=== PATIENT | female | born 1960 | race Caucasian/White ===

== ENCOUNTER → 2020-10-07 | Day surgery (SDC) | payer BC ==
[2020-10-04 09:01] LABS: BASOPHILS # (AUTO) 0.1 (0.0-0.1); BASOPHILS % 0.5 % (0.0-1.0); EOSINOPHILS # (AUTO) 0.9 (0.0-0.4); EOSINOPHILS % 7.9 % (0.0-6.0); HEMOGLOBIN 13.8 g/dL (12.0-16.0); LYMPHOCYTES % 27.1 % (18.0-39.1); MEAN CORPUSCULAR HEMOGLOBIN 30.1 pg (28-32); MEAN CORPUSCULAR HGB CONC 32.9 g/dL (31-35); MEAN CORPUSCULAR VOLUME 91.5 fL (81-99); MONOCYTES # (AUTO) 0.6 (0.2-0.8); MONOCYTES % 5.4 % (4.4-11.3); NEUTROPHILS # (AUTO) 6.5 (2.1-6.9); NEUTROPHILS % 58.6 % (38.7-80.0); PLATELET COUNT 288 x10e3/uL (140-360); RED BLOOD COUNT 4.59 x10e6/uL (3.6-5.1); RED CELL DISTRIBUTION WIDTH 12.2 % (11.7-14.4)
[2020-10-04 09:22] LABS: INR 0.9; PROTHROMBIN TIME 12.7 seconds (11.9-14.5)
[2020-10-04 09:27] LABS: ALANINE AMINOTRANSFERASE 12 IU/L (0-55); ALBUMIN 3.5 g/dL (3.5-5.0); ALBUMIN/GLOBULIN RATIO 0.8 (0.8-2.0); ALKALINE PHOSPHATASE 87 IU/L (40-150); ANION GAP 16.3 mmol/L (8-16); BLOOD UREA NITROGEN 19 mg/dL (7-26); BUN/CREATININE RATIO 21 (6-25); CALCIUM 9.6 mg/dL (8.4-10.2); CARBON DIOXIDE 21 mmol/L (22-29); CHLORIDE 106 mmol/L (98-107); CREATININE, SERUM 0.92 mg/dL (0.57-1.11); EST GLOMERULAR FILTRATION RATE > 60 ML/MIN (60-); GLUCOSE 250 mg/dL (74-118); POTASSIUM 4.3 mmol/L (3.5-5.1); SODIUM 139 mmol/L (136-145)
[2020-10-07] VITALS (13 sets, daily range): BP systolic 115–168; BP diastolic 63–92
[~2020-10-07] VITALS: Ht 157.5 cm; Wt 69.9 kg
[~2020-10-07] MED LIST: ADENOSINE 3MG/1ML 30ML VIAL ONE; ALEVE220 M1 PO; Albuterol/Ipratropium NEB; FENTANYL CITRATE/PF 100MCG/2 ML INJ ONE; HEPARIN SOD (PORCINE) 1000 UNIT/ML 30ML ONE; HEPARIN SOD/SOD CHLORIDE 2,000 ML ONE; IOPAMIDOL 370 MG/ML 200 ML INFUS..BTL INJ ONE; KAPSPARGO SPRIN25 MG PO; KOMBIGLYZE XR1 EAC2 PO; LEVAQUIN500 MG PO; LEVEMIR100 UNIT/1 SC; LIDOCAINE HCL 2% LOCAL 20 ML VIAL ONE; METOPROLOL TART50 MG PO; MIDAZOLAM HCL 2 MG/2 ML VIAL ONE; MUCINEX600 MG PO; NITROGLYCERIN/D5W 200 MCG/ML 250 ML ONE; PREDNISONE20 MG PO; PROTONIX40 MG/ML PO; SODIUM CHLORIDE 0.9% 1000ML 1,000 ML ONE; SODIUM CHLORIDE 0.9% 50ML 50 ML ONE; VERAPAMIL HCL 2.5 MG/ML 2 ML VIAL ONE; WELCHOL625 MG PO
== END | disposition home or self-care (01) ==
LOC: CATH LAB 07:12
PROVIDERS: ATTEND Internal Medicine Cardiovascular Disease
DX: I25.10 Atherosclerotic heart disease of native coronary artery without angina pectoris (principal); R94.39 Abnormal result of other cardiovascular function study; I10 Essential (primary) hypertension; E78.5 Hyperlipidemia, unspecified; I47.1 Supraventricular tachycardia; E11.9 Type 2 diabetes mellitus without complications; Z01.812 Encounter for preprocedural laboratory examination; Z20.822 Contact with and (suspected) exposure to COVID-19; Z82.49 Family history of ischemic heart disease and other diseases of the circulatory system; Z83.3 Family history of diabetes mellitus; Z82.3 Family history of stroke
CPT/HCPCS: 36415; 80053; 85025; 85610; 93458; 93571; C1753; C1769; C1887; J0153; J1644; J2001; J2250; J3010; J7030; Q9967; U0002; 99152; 99153

== ENCOUNTER 2022-05-30 09:50 | Inpatient (IN) | payer BC, OTHER ==
[~2022-05-30] VITALS: Ht 157.5 cm; Wt 54.0 kg
[~2022-05-30 09:50] MED LIST changes: -ADENOSINE 3MG/1ML 30ML VIAL ONE; -FENTANYL CITRATE/PF 100MCG/2 ML INJ ONE; -HEPARIN SOD (PORCINE) 1000 UNIT/ML 30ML ONE; -HEPARIN SOD/SOD CHLORIDE 2,000 ML ONE; -IOPAMIDOL 370 MG/ML 200 ML INFUS..BTL INJ ONE; -LIDOCAINE HCL 2% LOCAL 20 ML VIAL ONE; -MIDAZOLAM HCL 2 MG/2 ML VIAL ONE; -NITROGLYCERIN/D5W 200 MCG/ML 250 ML ONE; -SODIUM CHLORIDE 0.9% 1000ML 1,000 ML ONE; -SODIUM CHLORIDE 0.9% 50ML 50 ML ONE; -VERAPAMIL HCL 2.5 MG/ML 2 ML VIAL ONE
[2022-05-30 10:42] LABS: BASOPHILS # (AUTO) 0.1 (0.0-0.1); BASOPHILS % 0.6 % (0.0-1.0); EOSINOPHILS # (AUTO) 0.3 (0.0-0.4); EOSINOPHILS % 1.6 % (0.0-6.0); HEMATOCRIT 41.1 % (34.2-44.1); HEMOGLOBIN 12.5 g/dL (12.0-16.0); LYMPHOCYTES % 5.5 % (18.0-39.1); MEAN CORPUSCULAR HEMOGLOBIN 29.9 pg (28-32); MEAN CORPUSCULAR HGB CONC 30.4 g/dL (31-35); MEAN CORPUSCULAR VOLUME 98.3 fL (81-99); MONOCYTES # (AUTO) 0.8 (0.2-0.8); MONOCYTES % 4.1 % (4.4-11.3); NEUTROPHILS # (AUTO) 16.2 (2.1-6.9); NEUTROPHILS % 87.8 % (38.7-80.0); PLATELET COUNT 422 x10e3/uL (140-360); RED BLOOD COUNT 4.18 x10e6/uL (3.6-5.1)
[2022-05-30 11:05] LABS: ALBUMIN 2.3 g/dL (3.5-5.0); ALBUMIN/GLOBULIN RATIO 0.4 (0.8-2.0); ANION GAP 19.6 mmol/L (8-16); CALCIUM 9.5 mg/dL (8.4-10.2); CREATININE, SERUM 0.69 mg/dL (0.57-1.11); POTASSIUM 4.6 mmol/L (3.5-5.1)
[2022-05-30] MEDS ORDERED: LACTATED RINGER'S 1,000 ML INJ ONE ×2 (11:15→13:45)
[2022-05-30] MEDS ORDERED: FENTANYL CITRATE/PF 100MCG/2 ML INJ IV PRN (11:30)
[2022-05-30] MEDS ORDERED: ASPIRIN 81 MG CHEW TAB PO ONE (12:00)
[2022-05-30] MEDS ORDERED: IOPAMIDOL 370 MG/ML 100 ML INFUS..BTL INJ ONE (12:02)
[2022-05-30] MEDS ORDERED: Morphine 4mg INJECTION 4 MG/ML INJ IV PRN (13:30)
[2022-05-30] MEDS ORDERED: ONDANSETRON HCL INJ 2MG/ML 2ML 2 MG/ML VIAL IV PRN (13:30)
[2022-05-30] MEDS: SODIUM CHLORIDE 0.9% 1000ML 1,000 ML IV SCH ×2 (15:14→22:40)
[2022-05-30 16:49] VITALS: BP 117/63
[2022-05-30] MEDS ORDERED: ATORVASTATIN CA40 MG PO (16:58)
[2022-05-30] MEDS ORDERED: JANUMET 50-1,01 EACH PO (16:58)
[2022-05-30] MEDS ORDERED: ASPIRIN81 MG PO (16:58)
[2022-05-30] MEDS ORDERED: OS-CAL 500+D T1 EACH PO (16:59)
[2022-05-30 17:02] VITALS: BP 117/63
[2022-05-30 17:07] VITALS: BP 117/63
[2022-05-30] MEDS ORDERED: ALBUTEROL/IPRATROPIUM 3 ML NEB NEB PRN (17:30)
[2022-05-30] MEDS ORDERED: PNEUMOCOCCAL VACCINE POLYVALENT 23 MCG/0.5 ML VIAL IM SCH (18:00)
[2022-05-30 19:52] VITALS: BP 104/63
[2022-05-30 21:00] VITALS: BP 104/63
[2022-05-31] VITALS (7 sets, daily range): BP systolic 99–124; BP diastolic 53–72
[2022-05-31 05:52] LABS: BASOPHILS # (AUTO) 0.1 (0.0-0.1); BASOPHILS % 0.9 % (0.0-1.0); EOSINOPHILS # (AUTO) 0.3 (0.0-0.4); EOSINOPHILS % 1.8 % (0.0-6.0); HEMATOCRIT 30.9 % (34.2-44.1); LYMPHOCYTES # (AUTO) 1.1 (1.0-3.2); LYMPHOCYTES % 7.5 % (18.0-39.1); MEAN CORPUSCULAR HEMOGLOBIN 30.3 pg (28-32); MEAN CORPUSCULAR HGB CONC 32.4 g/dL (31-35); MEAN CORPUSCULAR VOLUME 93.6 fL (81-99); MONOCYTES # (AUTO) 0.7 (0.2-0.8); MONOCYTES % 4.8 % (4.4-11.3); NEUTROPHILS # (AUTO) 12.9 (2.1-6.9); NEUTROPHILS % 84.3 % (38.7-80.0); PLATELET COUNT 387 x10e3/uL (140-360); RED CELL DISTRIBUTION WIDTH 13.5 % (11.7-14.4)
[2022-05-31] MEDS: SODIUM CHLORIDE 0.9% 1000ML 1,000 ML IV SCH (06:13)
[2022-05-31 06:26] LABS: ANION GAP 13.6 mmol/L (8-16); CALCIUM 8.5 mg/dL (8.4-10.2); CREATININE, SERUM 0.65 mg/dL (0.57-1.11); POTASSIUM 3.6 mmol/L (3.5-5.1)
[2022-05-31 08:09] LABS: BAND NEUTROPHILS % (MANUAL) 6 %; EOSINOPHILS % (MANUAL) 1 % (0-7); LYMPHOCYTES % (MANUAL) 4 % (19-48); MONOCYTES % (MANUAL) 3 % (3.4-9.0); NEUTROPHILS % (MANUAL) 86 % (40-74); PLATELET ESTIMATE ADEQUATE; PLATELET MORPHOLOGY COMMENT NORMAL; RBC MORPHOLOGY COMMENT NORMAL
[2022-05-31] MEDS ORDERED: LACTATED RINGER'S 1,000 ML INJ ONE (08:30)
[2022-05-31] MEDS ORDERED: NON-FORMULARY MEDICATION (Sitagliptin Phos/Metformin Hcl (Janumet 50-1,000 Mg Tablet) 1 TA PO SCH (09:00)
[2022-05-31] MEDS ORDERED: NON-FORMULARY MEDICATION (Atorvastatin Calcium 40 MG) PO SCH (09:00)
[2022-05-31] MEDS: ASPIRIN 81 MG CHEW TAB PO SCH (09:09)
[2022-05-31] MEDS: SITAGLIPTIN 100 MG TAB PO SCH (09:10)
[2022-05-31] MEDS: METOPROLOL TARTRATE 25 MG TAB PO SCH (09:11)
[2022-05-31] MEDS: METFORMIN HCL 500 MG TAB CR PO SCH (09:11)
[2022-05-31] MEDS: METHYLPREDNISOLONE SOD SUCC 40 MG/ML VIAL 1ML IV SCH (09:30)
[2022-05-31] MEDS: ATORVASTATIN 40 MG TAB PO SCH (21:37)
[2022-06-01] VITALS (7 sets, daily range): BP systolic 102–119; BP diastolic 54–76
[2022-06-01] MEDS: GUAIFENESIN/DEXTROMETHORPHAN LIQD 5 ML UDC NG PRN (01:02)
[2022-06-01 06:27] LABS: BASOPHILS % 0.2 % (0.0-1.0); HEMOGLOBIN 9.5 g/dL (12.0-16.0); LYMPHOCYTES # (AUTO) 1.1 (1.0-3.2); LYMPHOCYTES % 16.4 % (18.0-39.1); MEAN CORPUSCULAR HEMOGLOBIN 29.6 pg (28-32); MEAN CORPUSCULAR HGB CONC 29.7 g/dL (31-35); MEAN CORPUSCULAR VOLUME 99.7 fL (81-99); MONOCYTES # (AUTO) 0.4 (0.2-0.8); MONOCYTES % 6.3 % (4.4-11.3); NEUTROPHILS # (AUTO) 4.9 (2.1-6.9); NEUTROPHILS % 75.6 % (38.7-80.0); PLATELET COUNT 373 x10e3/uL (140-360); RED BLOOD COUNT 3.21 x10e6/uL (3.6-5.1); RED CELL DISTRIBUTION WIDTH 13.6 % (11.7-14.4)
[2022-06-01 07:02] LABS: ALBUMIN 1.6 g/dL (3.5-5.0); ALBUMIN/GLOBULIN RATIO 0.4 (0.8-2.0); ALKALINE PHOSPHATASE 72 IU/L (40-150); BLOOD UREA NITROGEN 10 mg/dL (7-26); BUN/CREATININE RATIO 15 (6-25); CALCIUM 8.3 mg/dL (8.4-10.2); CARBON DIOXIDE 28 mmol/L (22-29); CHLORIDE 99 mmol/L (98-107); CREATININE, SERUM 0.66 mg/dL (0.57-1.11); GLUCOSE 251 mg/dL (74-118); SODIUM 138 mmol/L (136-145)
[2022-06-01 07:05] LABS: ALANINE AMINOTRANSFERASE < 6 IU/L (0-55)
[2022-06-01] MEDS: METFORMIN HCL 500 MG TAB CR PO SCH (09:02)
[2022-06-01] MEDS: SITAGLIPTIN 100 MG TAB PO SCH (09:03)
[2022-06-01] MEDS: ASPIRIN 81 MG CHEW TAB PO SCH (09:03)
[2022-06-01] MEDS: METOPROLOL TARTRATE 25 MG TAB PO SCH ×2 (09:03→17:07)
[2022-06-01] MEDS: METHYLPREDNISOLONE SOD SUCC 40 MG/ML VIAL 1ML IV SCH (09:04)
[2022-06-01] MEDS ORDERED: ONDANSETRON HCL 4 MG ORAL DISINTEGRATING TAB PO PRN (10:30)
[2022-06-01] MEDS: ATORVASTATIN 40 MG TAB PO SCH (21:56)
[2022-06-02 00:12] VITALS: BP 108/53
[2022-06-02] MEDS: GUAIFENESIN/DEXTROMETHORPHAN LIQD 5 ML UDC NG PRN (03:16)
[2022-06-02 04:00] VITALS: BP 112/56
[2022-06-02 07:55] VITALS: BP 118/62
[2022-06-02 08:06] VITALS: BP 118/62
[2022-06-02] MEDS: ASPIRIN 81 MG CHEW TAB PO SCH (08:38)
[2022-06-02] MEDS: METFORMIN HCL 500 MG TAB CR PO SCH (08:39)
[2022-06-02] MEDS: SITAGLIPTIN 100 MG TAB PO SCH (08:39)
[2022-06-02] MEDS: METHYLPREDNISOLONE SOD SUCC 40 MG/ML VIAL 1ML IV SCH (08:40)
[2022-06-02] MEDS: METOPROLOL TARTRATE 25 MG TAB PO SCH (08:40)
[2022-06-02] MEDS ORDERED: AUGMENTIN 500-1 EACH PO (11:56)
[2022-06-02] MEDS ORDERED: PREDNISONE5 MG PO (11:58)
[2022-06-02 12:00] VITALS: BP 103/60
== END 2022-06-02 15:19 | disposition home or self-care (01) | DRG 871 ==
LOC: ER 09:58 → ERHOLD 13:24 → MED/SURG3 16:42 → OBSVTOIN 05-31 09:50
DX: A41.9 Sepsis, unspecified organism (principal); J18.9 Pneumonia, unspecified organism; J96.21 Acute and chronic respiratory failure with hypoxia; E44.1 Mild protein-calorie malnutrition; J84.9 Interstitial pulmonary disease, unspecified; E78.5 Hyperlipidemia, unspecified; D50.0 Iron deficiency anemia secondary to blood loss (chronic); E86.0 Dehydration; Z68.21 Body mass index [BMI] 21.0-21.9, adult; R65.20 Severe sepsis without septic shock; E11.69 Type 2 diabetes mellitus with other specified complication; J84.89 Other specified interstitial pulmonary diseases
CPT/HCPCS: 36415; 70496; 70498; 71045; 71260; 80048; 80053; 82948; 83605; 84484; 85025; 87040; 93005; 93306; 94799; 99285; G0378; J0456; J0692; J0696; J2405; J2920; J3010; J7030; J7050; J7121; Q9967